=== PATIENT | male | born 1980 | race Hispanic/Latino ===

== ENCOUNTER 2019-11-29 06:41 | Emergency (ER) | payer SELFPAY ==
[2019-11-29] MEDS ORDERED: Morphine 4 MG/ML VIAL ONE (07:00)
[2019-11-29] MEDS ORDERED: Ondansetron PF 4 MG/2 ML Vial ONE (07:00)
[2019-11-29 07:15] LABS: #Monocytes 0.5 thou/uL (0.11-0.59); #Neutrophils 6.4 thou/uL (1.40-6.50); %Basophils 0.3 % (0.0-1.0); %Eosinophils 0.5 % (0.0-10.0); %Lymphocytes 22.1 % (21.0-51.0); %Monocytes 5.7 % (0.0-10.0); %Neutrophils 71.4 % (42.0-75.0); Hemoglobin 16.5 g/dL (14.0-18.0); Mean Corpuscular HGB CONC 34.2 g/dL (32.0-36.0); Mean Corpuscular Hemoglobin 31.3 pg (27.0-31.0); Mean Corpuscular Volume 91.6 fL (78.0-98.0); Mean Platelet Volume 7.7 fL (7.4-10.4); Platelet Count 260 thou/uL (130-400); RBC Distribution Width 12.1 % (11.5-14.5); Red Blood Cell (RBC) Count 5.25 mill/uL (4.70-6.10)
[2019-11-29 07:32] LABS: ALT (SGPT) 43 U/L (8-55); AST (SGOT) 26 U/L (5-34); Albumin 4.3 g/dL (3.5-5.0); Alkaline Phosphatase 87 U/L (40-110); Anion Gap 18 mmol/L (10-20); BUN (Urea Nitrogen) 18 mg/dL (8.9-20.6); Bilirubin, Total 0.8 mg/dL (0.2-1.2); Calc. Creatinine Clearance 0 mL/min (70-130); Calcium 9.2 mg/dL (7.8-10.44); Carbon Dioxide 21 mmol/L (22-29); Chloride 104 mmol/L (98-107); Estimated GFR-MDRD 79; Globulin 2.9 g/dL (2.4-3.5); Glucose 136 mg/dL (70-105); Lipase 26 U/L (8-78); Potassium 3.7 mmol/L (3.5-5.1); Protein, Total 7.2 g/dL (6.0-8.3); Sodium 139 mmol/L (136-145)
[2019-11-29] MEDS ORDERED: Ketorolac Tromethamine 30 MG/ML VIAL ONE (08:03)
[2019-11-29 08:30] LABS: Bilirubin Negative (Negative); Blood, Urine 2+ (Negative); Clarity Clear (Clear); Glucose, Urine (Dipstick) Normal (Negative); Ketone, Urine Negative (Negative); Leukocyte Negative Leu/uL (Negative); Nitrite Negative (Negative); Protein, Urine (Dipstick) 10 mg/dL (Neg-Trace); RBC/HPF 21-50 HPF (0-3); Squamous Epithelial None Seen HPF (0-3); Urobilinogen Normal mg/dL (Less than 2); WBC/HPF 0-3 HPF (0-3)
[2019-11-29 08:31] LABS: Specific Gravity, Urine 1.052 (1.002-1.036)
[2019-11-29 08:39] LABS: Bacteria/HPF Rare-Few HPF (None Seen)
--- NOTE | 2019-11-29 09:05 | CT ---
CT ABDOMEN AND PELVIS WITH IV CONTRAST: INDICATION: Abdominal pain. Right flank pain. FINDINGS: Lung bases clear. Liver, spleen, and pancreas unremarkable. The liver shows low attenuation suggesting fatty infiltrat ion. Stomach and duodenum unremarkable. Adrenal glands normal. Review of the kidneys show mild fullness in the right collecting structures with mild right renal danish matous change and perinephric stranding. There is mild dilatation of the right ureter. The bladder is contracted. There is a tiny calculus measuring in the 2 mm range just beyond the righ t UVJ which would suggest a recently passed calculus from the right ureter. This would explain the c hanges in the right kidney and collecting structures. The left kidney and left collecting structures are unremarkable. Small and large bowel loops appear normal. Appendix appears normal. Aorta and retroperitoneum unrem arkable. Pelvic structures unremarkable. Osseous structures unremarkable. IMPRESSION: Mild fullness of the right collecting structures with mild perinephric stranding and mild right renal edema. Tiny calculus in the bladder just beyond the right ureterovesical junction suggests a recent ly passed calculus from the right ureter. POS: AGW
[2019-11-29] MEDS ORDERED: Iopamidol 370 76% 100 ML VIAL ONE (16:10)
== END 2019-11-29 09:50 | disposition home or self-care (01) ==
LOC: ERS 06:41
DX: N20.0 Calculus of kidney (principal); R11.10 Vomiting, unspecified
CPT/HCPCS: 74177; 80053; 81003; 81015; 83690; 85025; 96374; 96375; J1885; J2270; J2405; Q9967